=== PATIENT | female | born 1935 | race Caucasian/White ===

== ENCOUNTER 2018-10-20 07:30 | Inpatient (IN) ==
[2018-11-10] MEDS ORDERED: Sodium Chlor 0.9% Inj 500 ML IV.CONT ONE (06:00)
[2018-11-10] MEDS ORDERED: Metoprolol Tartrate 25 MG Tablet PO ONE (06:00)
[2018-11-10] MEDS ORDERED: Chlorhexidine Gluconate 2% 1 Pack (2 Cloths) TOPICAL ONE (06:00)
[2018-11-10] MEDS ORDERED: fentaNYL Citrate Inj 250 MCG/5 ML Ampul ONE (07:06)
[2018-11-10] MEDS ORDERED: ceFAZolin 1 GM Premix Inj 2 GM/100 ML PIGGYBACK IV.SIG ONE (07:17)
[2018-11-10] MEDS ORDERED: Heparin - SQ 10,000 UNITS/ML Vial ONE (07:17)
[2018-11-10] MEDS ORDERED: SODIUM CHLOR P-ARTICULR ONE ×4 (08:00)
[2018-11-10] MEDS ORDERED: [UNRECOGNIZED DRUG - OTHER] P-ARTICULR ONE ×4 (08:00)
[2018-11-10] MEDS ORDERED: BUPIVACAINE LIPOSO P-ARTICULR ONE ×4 (08:00)
[2018-11-10] MEDS ORDERED: Bisacodyl 10 MG Supp RECTAL PRN (11:56)
[2018-11-10] MEDS ORDERED: Acetaminophen 325 MG Tablet PO PRN (11:56)
[2018-11-10] MEDS ORDERED: Post-op Orders (for Pharmacy) OTHER STA (11:56)
[2018-11-10] MEDS ORDERED: Ketorolac Inj 30 MG/ML (IVP) Vial IV.PUSH SCH (12:00)
--- NOTE | 2018-11-10 12:05 | P.OP ---
Date of procedure: 11/10/18 Anesthesia: GETA Surgeon: Bettina Coronel MD Operation and Findings: PREOPERATIVE DIAGNOSIS 1. Left upper lobe Lung Cancer 2. COPD POSTOPERATIVE DIAGNOSIS same PROCEDURES 1. Left posterolateral Muscle Sparing Thoracotomy 2. Left upper lobectomy 3. Mediastinal Lymph Node Dissection 4. Cryo nerve block 5. Pharmacologic Intercostal Nerve Block SURGEON Bettina Coronel MD SENIOR NETWORK ENGINEER JOSE Lott ANESTHESIA General double-lumen endotracheal. INDIRECT FIRE INFANTRYMAN ILIA Dave MD DRAINS [address] COUNTS Needle, sponge, and instrument counts were correct. COMPLICATIONS None. INDICATION FOR PROCEDURE The patient is a 83yo lady with left lung mass presenting for surgical resection of above pathology. DESCRIPTION OF PROCEDURE The patient was brought to the operating suite and placed in supine position. Following satisfactory induction of general double-lumen endotracheal anesthesia , the patient was placed in the right lateral decubitus position. The left chest and surrounding area was then prepped and draped in the usual sterile fashion. A standard muscle-sparing posterolateral thoracotomy was performed and the serratus anterior muscle spared. The pleural space was entered. Exploration of the chest revealed a large mass in the left upper lobe close to the fissure but not crossing the fissure. The inferior pulmonary ligament was divided. The pulmonary arterial supply to the upper lobe was identified, dissected free and divided as was the pulmonary venous supply. The bronchus was then dissected free , clamped and the remaining lung was insufflated without any difficulty. Lymph node dissections of level 5,6, 7, 10 and 11 were performed along with the course of this removal. Some of these were retained with the specimen. Specimen was removed from the chest. The remaining lung was submerged under sterile water and inflated. No air leaks were identified. At this point the closure was undertaken. A 28-Y[place]ut chest tube was placed. Cryo nerve block was performed using the AtriCure Cryo-probe at the level of the incision as well as two intercostal spaces above and below. Tissell was sprayed along the staple line and no air-leaks were identified. Pharmacologic intercostal nerve block was performed at the level of the incision and 3 rib spaces above and below using Exparel with Decadron solution. The pericostal space was approximated with interrupted #1 Vicryl sutures in a pericostal fashion. The serratus fascia and Latissimus dorsi were closed with running 0-Vicryl and the remaining wounds closed with 3-0, and 4-0 Monocryl. The patient tolerated the procedure well and postoperatively went to the PACU in stable condition.
[2018-11-10] MEDS ORDERED: *morphine SULFATE 4 MG/ML PERIprocedure ONLY ONE ×2 (12:30→12:59)
--- NOTE | 2018-11-10 12:49 | XR ---
EXAM DATE: 11/10/2018 12:35 PM EST AGE/SEX: 83 years / Female INDICATIONS: Post op, thoracotomy. CLINICAL DATA: This is the patient's initial encounter. Patient reports that signs and symptoms have been present for 1 day and indicates a pain score of Nonresponsive. MEDICAL/SURGICAL HISTORY: Chronic obstructive pulmonary disease. None. COMPARISON: [facility] [place] 2V PA&LAT, 10/17/2018. . FINDINGS: A left chest tube is noted status post thoracotomy. Tiny left basilar pneumothorax is noted. Minimal subcutaneous emphysema is noted within the left chest wall. The right lung is clear. The previously n oted left lung mass has been resected. The heart is stable. CONCLUSION: Tiny left basilar pneumothorax and minimal subcutaneous emphysema within the left chest wall. Electronically signed by: Leonardo Jeff MD Board Certified Radiologist 11/10/2018 12:48 PM EST
[2018-11-10] MEDS ORDERED: Ketorolac Inj 30 MG/ML (IVP) Vial ONE (12:54)
--- NOTE | 2018-11-10 14:50 | P.PNCV ---
- Note Subjective/Hospital Course: 83 female , initially seen in office by Dr Coronel on 10/16/19, presented with new findings of a large left upper lobe mass, underwent workup including PET CT demonstrating 5.8 cm spiculated mass in the left upper lobe abutting the fissure. PMH: COPD, arthritis , glaucoma , tobacco abuse electively admitted for surgery Date of procedure: 11/10/18 Anesthesia: GETA Surgeon: Bettina Coronel MD Operation and Findings: PREOPERATIVE DIAGNOSIS 1. Left upper lobe Lung Cancer 2. COPD POSTOPERATIVE DIAGNOSIS same PROCEDURES 1. Left posterolateral Muscle Sparing Thoracotomy 2. Left upper lobectomy 3. Mediastinal Lymph Node Dissection 4. Cryo nerve block 5. Pharmacologic Intercostal Nerve Block Objective: Vital Signs - 24 hr 11/10/18 06:19 11/10/18 12:10 11/10/18 12:15 Temperature 97.7 F 96.9 F L Pulse Rate 70 73 75 Respiratory Rate 18 15 20 Blood Pressure 157/87 H 121/62 122/60 Pulse Oximetry 95 98 97 11/10/18 12:30 11/10/18 12:45 11/10/18 13:00 Temperature Pulse Rate 66 68 65 Respiratory Rate 22 22 20 Blood Pressure 123/60 143/65 H 141/68 H Pulse Oximetry 97 96 96 11/10/18 13:15 11/10/18 13:30 Temperature 97.5 F L Pulse Rate 60 62 Respiratory Rate 18 20 Blood Pressure 141/67 H 140/64 Pulse Oximetry 96 96 Labs: Laboratory Results - last 12 hr 11/10/18 11/10/18 11/10/18 06:10 06:10 07:58 Blood Type O Negative Blood Type Recheck Required Antibody Screen Positive H Antibody Identification Anti-D MTS Gel Crossmatch See Detail
--- NOTE | 2018-11-10 14:53 | P.DCO ---
- Diagnosis (1) S/P thoracotomy Status: Acute (2) Lung cancer Status: Chronic (3) COPD (chronic obstructive pulmonary disease) Status: Chronic (4) Tobacco abuse Status: Acute - Home Health Nursing Order: Medical education, Signs/symptoms of disease process, Wound care and dressing changes, Nursing assessment with vital signs Instructions: Incentive spirometry Q1 hr x 10, while awake, also use acapella device hourly whole Chest wall precautions: NO pushing or pulling, ( pt must use chest pillow support chest with all activities and with coughing Daily incision care: ok to shower ( 48hrs after chest tube removed) and then daily, no tub bath. Wash all incisions with liquid dial soap, clean wash cloth to each site, rinse and pat dry. Observe for any signs of infection, such as drainage which is dark yellow, beltran, green or foul smelling. Immediately report to the surgeon any drainage from the chest incision, or legs, and for any abnormal drainage from the chest tube sites. Notify surgeon if any temp > 101.5 degrees F. When specialty dressing removed/ or if you do not have one, continue to shower daily as above, then rinse and pat incision dry and paint with betadine daily x 5 days. Allow steri strips to fall off if you have any. Avoid lotions, creams, salves, oils, etc. for the first month For Dr. Guaman patients , please obtain PA & Lat CXR in 2 weeks, results to Dr. Guaman ( prescription will be given) ( ) (Tele: ) , F/U appointment: as per MO instructions: PCP in 2 weeks, CV surgeon 2 weeks, Enrober Tender 3-4 weeks For any questions regarding incisions/ dressing / meds / post op care or above Symptoms, Tuesday 8am-5pm Heart & Vascular Surgery Office ( Dr. Coronel & Dr. Guaman), After Hours / Nights (5pm -8am) Weekends and Holidays Please call [facility] ([facility]) Charge Nurse Thoracic Surgery patients Mandatory frequency Assess and evaluation, 2-3 x a week for one week Initial visit 1. Review post chest surgery instructions chest precautions, Activity, Elastic hose, Incision care, Driving, Incentive spirometry, Smoking, [place] , Work and other) 2. Need Betadine to paint incision 3. Medication reconciliation 4. Importance of follow up care/ check on appointments 5. Make calendar record temperature daily 6. When to call Home nurse, review instructions, phone list 7. Incentive Spirometry, demonstration Visit 1- Begin discharge instruction for patient family and/ or caregiver using teach back method- 1. Signs and symptoms of infection 2. Disease characteristics 3. Medicines and side effects 4. Foods and nutrition/ appetite 5. Infection control/ hand washing/ hygiene Visit 2- Continue teaching 1. Discharge instructions- include additional information on smoking cessation , Visit 3- Continue teaching- 1. Cough and deep breathing, incision monitoring. For any questions please call : / [facility] Cardiothoracic Surgery [phone] - Case Management Consult Case Management Consult-Home Health: Yes - Certification I have seen patient Sho Kuhn on 11/10/18. My clinical findings support the need for the requested home health care services because: Deconditioned with increased weakness I certify that my clinical findings support that this patient is homebound because: Post-op weakness
[2018-11-10] MEDS: Ketorolac Inj 30 MG/ML (IVP) Vial IV.PUSH SCH (18:44)
[2018-11-10] MEDS: ceFAZolin Inj 1 GM in Sodium Chlor 0.9% Inj 100 ML IV.SIG SCH (19:01)
[2018-11-10] MEDS: Latanoprost 0.005% Opth Drops 2.5 ML Bottle EACH EYE SCH (19:02)
[2018-11-10] MEDS: Senna/Docusate Sodium 8.6/50 MG Tablet PO SCH (20:51)
[2018-11-10] MEDS: Vitamins A,C,E/Lutein/Minerals Tablet PO SCH (22:04)
[2018-11-10] MEDS: Timolol 0.5% Drops 5 ML Bottle EACH EYE SCH (22:04)
[2018-11-10] MEDS: Atenolol 25 MG Tablet PO SCH (22:04)
[2018-11-11] MEDS: ceFAZolin Inj 1 GM in Sodium Chlor 0.9% Inj 100 ML IV.SIG SCH ×2 (01:09→09:32)
[2018-11-11] MEDS: Ketorolac Inj 30 MG/ML (IVP) Vial IV.PUSH SCH ×2 (01:31→06:20)
--- NOTE | 2018-11-11 04:13 | XR ---
EXAM DATE: 11/11/2018 4:00 AM EST AGE/SEX: 83 years / Female INDICATIONS: shortness of breath, possible pneumothorax. CLINICAL DATA: This is the patient's subsequent encounter. Patient reports that signs and symptoms h ave been present for 2 days and indicates a pain score of 5/10. MEDICAL/SURGICAL HISTORY: Chronic obstructive pulmonary disease. Chest tube, left. Thoracotomy. COMPARISON: No prior exams available for comparison. FINDINGS: Portable AP view of the chest demonstrates a normal-sized cardiac silhouette. There is elevation of t he left hemidiaphragm. Left chest tube is in place and no pneumothorax is visualized. There is mild a telectasis at the lung bases. Mild left chest wall and supraclavicular region subcutaneous emphysema is present. CONCLUSION: Left chest tube is in place and no pneumothorax is visualized. There is elevation of the left hemidia phragm. Electronically signed by: Fer Cavazos MD Board Certified Radiologist 11/11/2018 4:12 AM EST
[2018-11-11 05:06] LABS: Baso % (Auto) 0.4 % (0.0-2.0); Eos % (Auto) 0.4 % (0.0-4.0); Hematocrit 32.8 % (35.0-46.0); Hemoglobin 11.1 gm/dL (11.6-15.3); Lymph # (Auto) 1.6 th/mm3 (1.0-4.8); Lymph % (Auto) 13.9 % (9.0-44.0); Mean Corpuscular HGB Conc 33.9 % (32.0-36.0); Mean Corpuscular Hemoglobin 28.5 pg (27.0-34.0); Mean Corpuscular Volume 84.3 fL (80.0-100.0); Mean Platelet Volume 7.9 fL (7.0-11.0); Mono # (Auto) 1.1 th/mm3 (0.0-0.9); Mono % (Auto) 9.7 % (0.0-8.0); Neut # (Auto) 8.6 th/mm3 (1.8-7.7); Neut % (Auto) 75.6 % (16.0-70.0); Platelet Count 232 th/mm3 (150-450); Red Blood Count 3.89 mil/mm3 (4.00-5.30); Red Cell Distribution Width 14.1 % (11.6-17.2); White Blood Count 11.4 th/mm3 (4.0-11.0)
[2018-11-11 05:09] LABS: Calcium 8.1 mg/dL (8.5-10.1); Carbon Dioxide 29.8 meq/L (21.0-32.0); Potassium 4.4 meq/L (3.5-5.1)
[2018-11-11] MEDS: Lactobacillus Acidophilus/L. Spores Tablet PO SCH (08:57)
[2018-11-11] MEDS: Timolol 0.5% Drops 5 ML Bottle EACH EYE SCH ×2 (08:57→21:48)
[2018-11-11] MEDS: Senna/Docusate Sodium 8.6/50 MG Tablet PO SCH ×2 (08:58→21:47)
[2018-11-11] MEDS: Vitamins A,C,E/Lutein/Minerals Tablet PO SCH ×2 (08:58→21:46)
[2018-11-11] MEDS: Atenolol 25 MG Tablet PO SCH ×2 (08:59→21:46)
--- NOTE | 2018-11-11 11:49 | P.PNCV ---
- Note CVT: Post Op Day #: 1 Subjective/Hospital Course: 83 female , initially seen in [facility] by Dr Coronel on 10/16/19, presented with new findings of a large left upper lobe mass, underwent workup including PET CT demonstrating 5.8 cm spiculated mass in the left upper lobe abutting the fissure. PMH: COPD, arthritis , glaucoma , tobacco abuse electively admitted for surgery Date of procedure: 11/10/18 Anesthesia: GETA Surgeon: Bettina Coronel MD Operation and Findings: PREOPERATIVE DIAGNOSIS 1. Left upper lobe Lung Cancer 2. COPD POSTOPERATIVE DIAGNOSIS same PROCEDURES 1. Left posterolateral Muscle Sparing Thoracotomy 2. Left upper lobectomy 3. Mediastinal Lymph Node Dissection 4. Cryo nerve block 5. Pharmacologic Intercostal Nerve Block 11/11/18 doing well, no complaints ~170ml from chest tube, no air leak Objective: Vital Signs - 24 hr 11/10/18 12:10 11/10/18 12:15 11/10/18 12:30 Temperature 96.9 F L Pulse Rate 73 75 66 Respiratory Rate 15 20 22 Blood Pressure 121/62 122/60 123/60 Pulse Oximetry 98 97 97 11/10/18 12:45 11/10/18 13:00 11/10/18 13:15 Temperature Pulse Rate 68 65 60 Respiratory Rate 22 20 18 Blood Pressure 143/65 H 141/68 H 141/67 H Pulse Oximetry 96 96 96 11/10/18 13:30 11/10/18 15:00 11/10/18 15:28 Temperature 97.5 F L 97.9 F Pulse Rate 62 70 64 Respiratory Rate 20 22 18 Blood Pressure 140/64 145/66 H 133/92 H Pulse Oximetry 96 97 99 11/10/18 16:38 11/10/18 19:00 11/10/18 19:35 Temperature 97.8 F Pulse Rate 87 67 74 Respiratory Rate 18 22 22 Blood Pressure 138/63 Pulse Oximetry 99 94 L 11/10/18 20:00 11/10/18 22:00 11/10/18 22:21 Temperature Pulse Rate 90 88 Respiratory Rate 4 L Blood Pressure Pulse Oximetry 11/10/18 22:55 11/11/18 00:00 11/11/18 01:00 Temperature 98 F Pulse Rate 73 88 64 Respiratory Rate 18 Blood Pressure 123/62 Pulse Oximetry 94 L 11/11/18 02:02 11/11/18 03:00 11/11/18 03:46 Temperature 97.8 F Pulse Rate 67 65 65 Respiratory Rate 18 16 Blood Pressure 122/58 L Pulse Oximetry 94 L 11/11/18 04:00 11/11/18 05:00 11/11/18 06:00 Temperature Pulse Rate 80 65 80 Respiratory Rate Blood Pressure Pulse Oximetry 11/11/18 07:00 11/11/18 08:00 11/11/18 09:00 Temperature 97.8 F Pulse Rate 72 86 86 Respiratory Rate 20 Blood Pressure 145/67 H Pulse Oximetry 93 L 11/11/18 10:00 11/11/18 11:25 11/11/18 11:30 Temperature Pulse Rate 91 H 73 Respiratory Rate 20 Blood Pressure Pulse Oximetry 93 L Labs: Laboratory Results - last 12 hr 11/10/18 11/11/18 11/11/18 07:58 04:06 04:06 WBC 11.4 H RBC 3.89 L Hgb 11.1 L Hct 32.8 L MCV 84.3 MCH 28.5 MCHC 33.9 RDW 14.1 Plt Count 232 MPV 7.9 Neut % (Auto) 75.6 H Lymph % (Auto) 13.9 [place] % (Auto) 9.7 H Eos % (Auto) 0.4 Baso % (Auto) 0.4 Neut # (Auto) 8.6 H Lymph # (Auto) 1.6 [place] # (Auto) 1.1 H Eos # (Auto) 0.0 Baso # (Auto) 0.0 WBC Differential . Differential Comment Auto diff final Sodium 132 L Potassium 4.4 Chloride 96 L Carbon Dioxide 29.8 Anion Gap 6 BUN 20 H Creatinine 0.92 Estimated GFR 58 L Random Glucose 85 Calcium 8.1 L MTS Gel Crossmatch See Detail Result Diagrams: 11/11/18 04:06 11/11/18 04:06 Imaging: Chest X-Ray 11/11/18 11:56 CONCLUSION: Left chest tube is in place and no pneumothorax is visualized. There is elevation of the left hemidiaphragm. Cardiovascular: RRR Pulmonary: CTA GI/: NABS Incision: dry and intact CT: as above Chest tube to water seal Encourage ambulation CXR in AM
[2018-11-11] MEDS: Latanoprost 0.005% Opth Drops 2.5 ML Bottle EACH EYE SCH (17:35)
--- NOTE | 2018-11-12 03:54 | XR ---
EXAM DATE: 11/12/2018 3:43 AM EST AGE/SEX: 83 years / Female INDICATIONS: Shortness of breath, possible pneumothorax. CLINICAL DATA: This is the patient's subsequent encounter. Patient reports that signs and symptoms h ave been present for 3 days and indicates a pain score of 3/10. MEDICAL/SURGICAL HISTORY: Chronic obstructive pulmonary disease. Lobectomy. Chest tube, left. COMPARISON: [facility] – [place] 1V SINGLE AP, 11/11/2018. . FINDINGS: Portable AP view of the chest demonstrates a normal-sized cardiac silhouette. Left hemidiaphragm kavya ins elevated with left chest tube in place. No pneumothorax is visualized. There is mild bibasilar op acity with an appearance favoring atelectasis. No pleural effusion is seen. Examination quality is mi ldly degraded by motion artifact. CONCLUSION: Stable chest x-ray with left chest tube in place and no pneumothorax visualized. There is mild atelec tasis at the lung bases. Electronically signed by: Fer Cavazos MD Board Certified Radiologist 11/12/2018 3:52 AM EST
[2018-11-12] MEDS: Timolol 0.5% Drops 5 ML Bottle EACH EYE SCH ×2 (09:50→21:30)
[2018-11-12] MEDS: Vitamins A,C,E/Lutein/Minerals Tablet PO SCH ×2 (09:51→21:29)
[2018-11-12] MEDS: Lactobacillus Acidophilus/L. Spores Tablet PO SCH (09:51)
[2018-11-12] MEDS: Senna/Docusate Sodium 8.6/50 MG Tablet PO SCH ×2 (09:51→21:29)
[2018-11-12] MEDS: Atenolol 25 MG Tablet PO SCH ×2 (09:52→21:29)
--- NOTE | 2018-11-12 12:32 | P.PNCV ---
- Note CVT: Post Op Day #: 2 Subjective/Hospital Course: 83 female , initially seen in [facility] by Dr Coronel on 10/16/19, presented with new findings of a large left upper lobe mass, underwent workup including PET CT demonstrating 5.8 cm spiculated mass in the left upper lobe abutting the fissure. PMH: COPD, arthritis , glaucoma , tobacco abuse electively admitted for surgery Date of procedure: 11/10/18 Anesthesia: GETA Surgeon: Bettina Coronel MD Operation and Findings: PREOPERATIVE DIAGNOSIS 1. Left upper lobe Lung Cancer 2. COPD POSTOPERATIVE DIAGNOSIS same PROCEDURES 1. Left posterolateral Muscle Sparing Thoracotomy 2. Left upper lobectomy 3. Mediastinal Lymph Node Dissection 4. Cryo nerve block 5. Pharmacologic Intercostal Nerve Block 11/11/18 doing well, no complaints ~170ml from chest tube, no air leak 11/12/18 ~170ml/12hrs, no air leak No complaints Objective: Vital Signs - 24 hr 11/11/18 13:00 11/11/18 14:00 11/11/18 14:51 Temperature Pulse Rate 80 66 Respiratory Rate 20 Blood Pressure Pulse Oximetry 11/11/18 15:00 11/11/18 16:00 11/11/18 16:28 Temperature 98.1 F Pulse Rate 72 67 70 Respiratory Rate 20 18 Blood Pressure 165/77 H Pulse Oximetry 94 L 11/11/18 17:00 11/11/18 18:00 11/11/18 19:00 Temperature 97.9 F Pulse Rate 72 90 74 Respiratory Rate 20 Blood Pressure 142/72 H Pulse Oximetry 96 11/11/18 20:00 11/11/18 20:55 11/11/18 21:00 Temperature Pulse Rate 64 72 72 Respiratory Rate 18 Blood Pressure Pulse Oximetry 94 L 11/11/18 22:00 11/11/18 22:31 11/11/18 23:00 Temperature 98.2 F Pulse Rate 92 H 76 62 Respiratory Rate 18 Blood Pressure 157/72 H Pulse Oximetry 98 11/12/18 00:00 11/12/18 01:00 11/12/18 02:00 Temperature Pulse Rate 62 66 63 Respiratory Rate Blood Pressure Pulse Oximetry 11/12/18 03:00 11/12/18 04:00 11/12/18 04:30 Temperature 97.9 F Pulse Rate 64 94 H 90 Respiratory Rate 16 18 Blood Pressure 156/62 H Pulse Oximetry 96 11/12/18 05:00 11/12/18 06:00 11/12/18 07:00 Temperature 98.6 F Pulse Rate 88 65 65 Respiratory Rate 20 Blood Pressure 170/78 H Pulse Oximetry 96 11/12/18 08:00 Temperature Pulse Rate 88 Respiratory Rate Blood Pressure Pulse Oximetry Result Diagrams: 11/11/18 04:06 11/11/18 04:06 Imaging: Chest X-Ray 11/12/18 06:00 CONCLUSION: Stable chest x-ray with left chest tube in place and no pneumothorax visualized. There is mild atelectasis at the lung bases. Cardiovascular: RRR Pulmonary: CTA GI/: NABS Incision: dry and intact Continue chest tube to water seal Encourage ambulation D/C planing CXR in AM
[2018-11-12] MEDS: Latanoprost 0.005% Opth Drops 2.5 ML Bottle EACH EYE SCH (17:10)
--- NOTE | 2018-11-13 08:38 | XR ---
EXAM DATE: 11/13/2018 8:28 AM EST AGE/SEX: 83 years / Female INDICATIONS: . Chest tube placement. CLINICAL DATA: This is the patient's subsequent encounter. Patient reports that signs and symptoms h ave been present for 4 - 6 days and indicates a pain score of 0/10. MEDICAL/SURGICAL HISTORY: . Chronic obstructive pulmonary disease. . Lobectomy. Chest tub e, left COMPARISON: [facility] – [place], CHEST EXPIRATION ONLY, 11/12/2018. . FINDINGS: Frontal and lateral views of the chest demonstrate a normal-sized cardiac silhouette. Left hemidiaphr agm remains elevated and mediastinum is mildly deviated to the left. Left chest tube is present and n o pneumothorax is identified. There is a small meniscus on the left as well as on the lateral project ion. No airspace consolidation is present. Bones demonstrate no acute abnormality. CONCLUSION: 1. Left chest tube remains present and no pneumothorax is visualized. 2. Very small left pleural effusion Electronically signed by: Fer Cavazos MD Board Certified Radiologist 11/13/2018 8:37 AM EST
[2018-11-13] MEDS: Senna/Docusate Sodium 8.6/50 MG Tablet PO SCH ×2 (09:01→20:22)
[2018-11-13] MEDS: Lactobacillus Acidophilus/L. Spores Tablet PO SCH (09:01)
[2018-11-13] MEDS: Atenolol 25 MG Tablet PO SCH ×2 (09:01→20:22)
[2018-11-13] MEDS: Vitamins A,C,E/Lutein/Minerals Tablet PO SCH ×2 (09:01→20:22)
[2018-11-13] MEDS: Timolol 0.5% Drops 5 ML Bottle EACH EYE SCH ×2 (09:02→20:22)
--- NOTE | 2018-11-13 14:44 | P.PNCV ---
- Note Subjective/Hospital Course: 83 female , initially seen in [facility] by Dr Coronel on 10/16/19, presented with new findings of a large left upper lobe mass, underwent workup including PET CT demonstrating 5.8 cm spiculated mass in the left upper lobe abutting the fissure. PMH: COPD, arthritis , glaucoma , tobacco abuse electively admitted for surgery Date of procedure: 11/10/18 Anesthesia: GETA Surgeon: Bettina Coronel MD Operation and Findings: PREOPERATIVE DIAGNOSIS 1. Left upper lobe Lung Cancer 2. COPD POSTOPERATIVE DIAGNOSIS same PROCEDURES 1. Left posterolateral Muscle Sparing Thoracotomy 2. Left upper lobectomy 3. Mediastinal Lymph Node Dissection 4. Cryo nerve block 5. Pharmacologic Intercostal Nerve Block 11/11/18 doing well, no complaints ~170ml from chest tube, no air leak 11/12/18 ~170ml/12hrs, no air leak No complaints 11/13 chest tube dc without difficulty f/u CXR in am then eval for dc in am Objective: Vital Signs - 24 hr 11/12/18 15:00 11/12/18 16:00 11/12/18 16:03 Temperature 97.7 F Pulse Rate 72 73 67 Respiratory Rate 20 18 Blood Pressure 152/69 H Pulse Oximetry 95 11/12/18 17:00 11/12/18 18:00 11/12/18 19:00 Temperature 97.6 F Pulse Rate 73 72 73 Respiratory Rate 16 Blood Pressure 147/67 H Pulse Oximetry 94 L 11/12/18 19:56 11/12/18 20:00 11/12/18 21:00 Temperature Pulse Rate 70 68 78 Respiratory Rate 16 Blood Pressure Pulse Oximetry 11/12/18 22:00 11/12/18 23:00 11/13/18 00:00 Temperature 98.4 F Pulse Rate 68 68 66 Respiratory Rate 18 Blood Pressure 158/81 H Pulse Oximetry 96 11/13/18 01:00 11/13/18 02:00 11/13/18 03:00 Temperature 98.6 F Pulse Rate 63 60 64 Respiratory Rate 18 Blood Pressure 166/74 H Pulse Oximetry 96 11/13/18 04:00 11/13/18 05:00 11/13/18 05:48 Temperature Pulse Rate 58 L 89 60 Respiratory Rate Blood Pressure Pulse Oximetry 11/13/18 07:00 11/13/18 08:00 11/13/18 09:00 Temperature 97.8 F Pulse Rate 69 65 68 Respiratory Rate 18 14 Blood Pressure 166/79 H Pulse Oximetry 94 L 11/13/18 09:58 11/13/18 10:00 11/13/18 11:00 Temperature 98.0 F Pulse Rate 64 78 Respiratory Rate 18 Blood Pressure 156/78 H Pulse Oximetry 94 L 96 11/13/18 12:00 Temperature Pulse Rate 64 Respiratory Rate Blood Pressure Pulse Oximetry GENERAL: A&O x 3 SKIN: Warm and dry. incision intact to left posterior lateral chest HEAD: Normocephalic. EYES: No scleral icterus. No injection or drainage. NECK: Supple, trachea midline. No JVD or lymphadenopathy. CARDIOVASCULAR: Regular rate and rhythm without murmurs, gallops, or rubs. RESPIRATORY: Breath sounds equal bilaterally. No accessory muscle use. slightly diminished in bases GASTROINTESTINAL: Abdomen soft, non-tender, nondistended. MUSCULOSKELETAL: No cyanosis, or edema. BACK: Nontender without obvious deformity. No CVA tenderness. Labs: Laboratory Results - last 12 hr 11/10/18 07:58 MTS Gel Crossmatch See Detail Result Diagrams: 11/11/18 04:06 11/11/18 04:06 Telemetry: NSR - Plan (1) S/P thoracotomy Plan: pulm toileting nebs ezpap await path OOB ambulate on room air (4) Tobacco abuse Plan: smoking cessation
--- NOTE | 2018-11-13 14:59 | P.DS ---
Date of admission: 11/10/18 05:19 Primary care physician: Ramy Oconnell MD Attending physician on discharge: Bettina Coronel Anticipated date of discharge: 11/14/18 Brief History from admission: 83 female , initially seen in [facility] office by Dr Coronel on 10/16/19, presented with new findings of a large left upper lobe mass, underwent workup including PET CT demonstrating 5.8 cm spiculated mass in the left upper lobe abutting the fissure. PMH: COPD, arthritis , glaucoma , tobacco abuse electively admitted for surgery Date of procedure: 11/10/18 Anesthesia: OGA Surgeon: Bettina Coronel MD Operation and Findings: PREOPERATIVE DIAGNOSIS 1. Left upper lobe Lung Cancer 2. COPD POSTOPERATIVE DIAGNOSIS same PROCEDURES 1. Left posterolateral Muscle Sparing Thoracotomy 2. Left upper lobectomy 3. Mediastinal Lymph Node Dissection 4. Cryo nerve block 5. Pharmacologic Intercostal Nerve Block 11/11/18 doing well, no complaints ~170ml from chest tube, no air leak 11/12/18 ~170ml/12hrs, no air leak No complaints 11/13 chest tube dc without difficulty on room air, pain controlled DS: Diagnosis - Discharge Diagnosis (1) S/P thoracotomy Status: Acute (2) Lung cancer Status: Chronic (3) COPD (chronic obstructive pulmonary disease) Status: Chronic (4) Tobacco abuse Status: Chronic DS: Medications - Discharge Medications Prescriptions: hydrocodone-acetaminophen 1 tab PO Q6H PRN #30 tab PRN Reason: Pain Scale 3 To 5 DS: Summary Hospital Course: Date of procedure: 11/10/18 Anesthesia: GETA Surgeon: Bettina Coronel MD Operation and Findings: PREOPERATIVE DIAGNOSIS 1. Left upper lobe Lung Cancer 2. COPD POSTOPERATIVE DIAGNOSIS same PROCEDURES 1. Left posterolateral Muscle Sparing Thoracotomy 2. Left upper lobectomy 3. Mediastinal Lymph Node Dissection 4. Cryo nerve block 5. Pharmacologic Intercostal Nerve Block 11/11/18 doing well, no complaints ~170ml from chest tube, no air leak 11/12/18 ~170ml/12hrs, no air leak No complaints - Time Spent with Patient Total time spent providing and/or coordinating discharge services: Less than 30 minutes - Quality: VTE Deep Vein Thrombosis/Pulmonary Embolism Present on Admission: No Exam Vital signs: Vital Signs 11/12/18 15:00 11/12/18 16:00 11/12/18 16:03 Temperature 97.7 F Pulse Rate 72 73 67 Respiratory Rate 20 18 Blood Pressure 152/69 H Pulse Oximetry 95 11/12/18 17:00 11/12/18 18:00 11/12/18 19:00 Temperature 97.6 F Pulse Rate 73 72 73 Respiratory Rate 16 Blood Pressure 147/67 H Pulse Oximetry 94 L 11/12/18 19:56 11/12/18 20:00 11/12/18 21:00 Temperature Pulse Rate 70 68 78 Respiratory Rate 16 Blood Pressure Pulse Oximetry 11/12/18 22:00 11/12/18 23:00 11/13/18 00:00 Temperature 98.4 F Pulse Rate 68 68 66 Respiratory Rate 18 Blood Pressure 158/81 H Pulse Oximetry 96 11/13/18 01:00 11/13/18 02:00 11/13/18 03:00 Temperature 98.6 F Pulse Rate 63 60 64 Respiratory Rate 18 Blood Pressure 166/74 H Pulse Oximetry 96 11/13/18 04:00 11/13/18 05:00 11/13/18 05:48 Temperature Pulse Rate 58 L 89 60 Respiratory Rate Blood Pressure Pulse Oximetry 11/13/18 07:00 11/13/18 08:00 11/13/18 09:00 Temperature 97.8 F Pulse Rate 69 65 68 Respiratory Rate 18 14 Blood Pressure 166/79 H Pulse Oximetry 94 L 11/13/18 09:58 11/13/18 10:00 11/13/18 11:00 Temperature 98.0 F Pulse Rate 64 78 Respiratory Rate 18 Blood Pressure 156/78 H Pulse Oximetry 94 L 96 11/13/18 12:00 Temperature Pulse Rate 64 Respiratory Rate Blood Pressure Pulse Oximetry Intake & Output 11/12/18 11/13/18 11/13/18 18:59 06:59 18:59 Intake Total 840 / 840 480 / 480 Output Total 490 / 490 50 / 50 Balance 350 / 350 430 / 430 Weight 68 kg Intake: Oral 840 / 840 480 / 480 Output: Urine 400 / 400 Chest Tube Drainage 90 / 90 50 / 50 Left Pleural 90 / 90 50 / 50 Other: # Voids 5 4 Date of Last Bowel Movement 11/10/18 11/10/18 # Bowel Movements 0 - Constitutional no acute distress - Routine HEENT Exam Head: Present: normocephalic - Routine Neck Exam Present: supple, full ROM - Routine Chest/Breast/Axilla Exam Chest wall: Present: tenderness Breast: Present: scars - Routine Respiratory Exam Present: decreased breath sounds, CTA bilaterally - Routine Cardiovascular Exam Present: RRR, S1, S2 - Routine Abdominal Exam Present: soft, normoactive bowel sounds - Routine Extremities Exam Present: full ROM, pulses intact, normal capillary refill - Routine Skin Exam Present: wounds Comments: left posterior chest incision intact and well approximated chest tube dc - Routine Neurological Exam Present: alert, oriented X3 Results Procedures completed during hospitalization: Date of procedure: 11/10/18 Anesthesia: GETA Surgeon: Bettina Coronel MD Operation and Findings: PREOPERATIVE DIAGNOSIS 1. Left upper lobe Lung Cancer 2. COPD POSTOPERATIVE DIAGNOSIS same PROCEDURES 1. Left posterolateral Muscle Sparing Thoracotomy 2. Left upper lobectomy 3. Mediastinal Lymph Node Dissection 4. Cryo nerve block 5. Pharmacologic Intercostal Nerve Block Labs on day of discharge: Labs from last 24 hours 11/10/18 07:58 MTS Gel Crossmatch See Detail - Impressions ITS Impressions Chest X-Ray 11/13/18 06:00 CONCLUSION: 1. Left chest tube remains present and no pneumothorax is visualized. 2. Very small left pleural effusion Discharge Plan - Discharge Disposition Patient Disposition: /Home Health Service - Discharge Condition Condition: Good - Discharge Order Discharge Orders: Discharge Order (Routine); Ordered 11/14/18 Ordered By: Lona Cao - Physicians Team Primary Care Provider: Ramy Oconnell Attending Provider: Bettina Coronel - Rxs /Orders / Referrals /Forms Prescriptions: New docusate sodium [Colace] 100 mg Capsule 100 mg PO BID Qty: 30 RF: 0 hydrocodone-acetaminophen 5-325 mg Tablet 1 tab PO Q6H PRN (Reason: Pain Scale 3 To 5) Qty: 30 RF: 0 Continue atenolol 25 mg Tablet 25 mg PO BID L.acid-B.animalis,bifi,inf,guicho [5X Probiotic] 3 billion cell Capsule 1 cap PO DAILY latanoprost (PF) 0.005 % Drops 1 drp OPHTHALMIC (EYE) QPM losartan 25 mg Tablet 100 mg PO DAILY timolol 0.5 % Drops 1 drp OPHTHALMIC (EYE) BID vit C,E-Xk-djskm-lutein-zeaxan [PreserVision AREDS-2] [id number] mg-unit-mg -mg Capsule 1 tab PO BID Referrals: Ramy Oconnell MD [Primary Care Provider] - See Instructions ( Your appointment has been scheduled for [11/15/18] at [9:45 am] If you cannot make this appointment, please call the office to reschedule ) Lona Cao [ADVANCE RN PRACTITIONER] - See Instructions ( Your appointment has been scheduled for [12/05/18] at [10:45 am] If you cannot make this appointment, please call the office to reschedule ) Alex Epps MD [Physician] - See Instructions ( Your appointment has been scheduled for [12/13/18] at [2:45 pm] If you cannot make this appointment, please call the office to reschedule ) - Discharge Instructions Additional Instructions: Incentive spirometry Q1 hr x 10, while awake, also use acapella device hourly whole Chest wall precautions: NO pushing or pulling, ( pt must use chest pillow support chest with all activities and with coughing Daily incision care: ok to shower ( 48hrs after chest tube removed) and then daily, no tub bath. Wash all incisions with liquid dial soap, clean wash cloth to each site, rinse and pat dry. Observe for any signs of infection, such as drainage which is dark yellow, beltran, green or foul smelling. Immediately report to the surgeon any drainage from the chest incision, or legs, and for any abnormal drainage from the chest tube sites. Notify surgeon if any temp > 101.5 degrees F. When specialty dressing removed/ or if you do not have one, continue to shower daily as above, then rinse and pat incision dry and paint with betadine daily x 5 days. Allow steri strips to fall off if you have any. Avoid lotions, creams, salves, oils, etc. for the first month For Dr. Guaman patients , please obtain PA & Lat CXR in 2 weeks, results to Dr. Guaman ( prescription will be given) ( ) (Tele: [phone]) , F/U appointment: as per DC instructions: PCP in 2 weeks, CV surgeon 2 weeks, Clock Assembler 3-4 weeks For any questions regarding incisions/ dressing / meds / post op care or above Symptoms, Tuesday 8am-5pm Heart & Vascular Surgery Office ( Dr. Coronel & Dr. Guaman), After Hours / Nights (5pm -8am) Weekends and Holidays Please call [facility] ([facility]) Charge Nurse
[2018-11-13] MEDS: Latanoprost 0.005% Opth Drops 2.5 ML Bottle EACH EYE SCH (17:35)
--- NOTE | 2018-11-14 04:50 | XR ---
EXAM DATE: 11/14/2018 4:33 AM EST AGE/SEX: 83 years / Female INDICATIONS: Short of breath. CLINICAL DATA: This is the patient's subsequent encounter. Patient reports that signs and symptoms h ave been present for 4 - 6 days and indicates a pain score of 0/10. MEDICAL/SURGICAL HISTORY: Chronic obstructive pulmonary disease. Lobectomy. COMPARISON: [facility] – [place], CHEST 2V AP&LAT, 11/13/2018. . FINDINGS: Left apical chest tube has been removed. No significant pneumothorax. Persistent elevation of the lef t hemidiaphragm with progressive airspace consolidation in the left lower lung zone. Mild diffuse int erstitial prominence unchanged from prior exam. Cardiomediastinal contours are stable. Remainder of t he exam is unchanged. CONCLUSION: 1. No significant pneumothorax following removal of left apical chest tube. 2. Worsening left lower lobe airspace disease. Electronically signed by: Chucho Soliman MD Board Certified Radiologist 11/14/2018 4:49 AM EST
[2018-11-14] MEDS: Senna/Docusate Sodium 8.6/50 MG Tablet PO SCH (08:57)
[2018-11-14] MEDS: Lactobacillus Acidophilus/L. Spores Tablet PO SCH (08:57)
[2018-11-14] MEDS: Vitamins A,C,E/Lutein/Minerals Tablet PO SCH (08:57)
[2018-11-14] MEDS: Atenolol 25 MG Tablet PO SCH (08:57)
[2018-11-14] MEDS: Timolol 0.5% Drops 5 ML Bottle EACH EYE SCH (08:58)
--- NOTE | 2018-11-14 09:36 | P.PNCV ---
- Note Subjective/Hospital Course: 83 female , initially seen in [facility] by Dr Coronel on 10/16/19, presented with new findings of a large left upper lobe mass, underwent workup including PET CT demonstrating 5.8 cm spiculated mass in the left upper lobe abutting the fissure. PMH: COPD, arthritis , glaucoma , tobacco abuse electively admitted for surgery Date of procedure: 11/10/18 Anesthesia: GETA Surgeon: Bettina Coronel MD Operation and Findings: PREOPERATIVE DIAGNOSIS 1. Left upper lobe Lung Cancer 2. COPD POSTOPERATIVE DIAGNOSIS same PROCEDURES 1. Left posterolateral Muscle Sparing Thoracotomy 2. Left upper lobectomy 3. Mediastinal Lymph Node Dissection 4. Cryo nerve block 5. Pharmacologic Intercostal Nerve Block 11/11/18 doing well, no complaints ~170ml from chest tube, no air leak 11/12/18 ~170ml/12hrs, no air leak No complaints 11/13 chest tube dc without difficulty f/u CXR in am then eval for dc in am 11/14 pt on room air path report not completed pt will see Dr Coronel next week for results table for discharge home Objective: Vital Signs - 24 hr 11/13/18 09:58 11/13/18 10:00 11/13/18 11:00 Temperature 98.0 F Pulse Rate 64 78 Respiratory Rate 18 Blood Pressure 156/78 H Pulse Oximetry 94 L 96 11/13/18 12:00 11/13/18 13:00 11/13/18 14:00 Temperature Pulse Rate 64 68 62 Respiratory Rate Blood Pressure Pulse Oximetry 11/13/18 15:00 11/13/18 16:00 11/13/18 17:00 Temperature 98.2 F Pulse Rate 86 64 66 Respiratory Rate 18 Blood Pressure 160/78 H Pulse Oximetry 97 11/13/18 18:00 11/13/18 19:00 11/13/18 20:00 Temperature 97.6 F Pulse Rate 66 66 78 Respiratory Rate 18 Blood Pressure 177/79 H Pulse Oximetry 95 11/13/18 21:00 11/13/18 21:25 11/13/18 22:00 Temperature Pulse Rate 72 72 90 Respiratory Rate 18 Blood Pressure Pulse Oximetry 92 L 11/13/18 23:00 11/14/18 00:00 11/14/18 01:00 Temperature 98.5 F Pulse Rate 73 60 78 Respiratory Rate 16 Blood Pressure 165/73 H Pulse Oximetry 98 11/14/18 02:00 11/14/18 03:00 11/14/18 04:00 Temperature 98.1 F Pulse Rate 68 69 69 Respiratory Rate 16 Blood Pressure 173/82 H Pulse Oximetry 99 11/14/18 05:00 11/14/18 06:00 11/14/18 07:00 Temperature 97.4 F L Pulse Rate 74 78 76 Respiratory Rate 16 Blood Pressure 143/67 H Pulse Oximetry 94 L GENERAL: A&O x 3 SKIN: Warm and dry. dressing intact to left posterior chest wall HEAD: Normocephalic. EYES: No scleral icterus. No injection or drainage. NECK: Supple, trachea midline. No JVD or lymphadenopathy. CARDIOVASCULAR: Regular rate and rhythm without murmurs, gallops, or rubs. RESPIRATORY: Breath sounds equal bilaterally. No accessory muscle use. GASTROINTESTINAL: Abdomen soft, non-tender, nondistended. MUSCULOSKELETAL: No cyanosis, or edema. BACK: Nontender without obvious deformity. No CVA tenderness. Result Diagrams: 11/11/18 04:06 11/11/18 04:06 - Plan (1) S/P thoracotomy Plan: pulm toileting nebs ezpap await path OOB ambulate on room air will dc home (4) Tobacco abuse Plan: smoking cessation
== END 2018-11-14 10:38 | disposition home health service (06) | DRG 165 ==
LOC: HSDI 11-10 05:19 → HCPC 11-10 15:11
PROVIDERS: ADMIT Thoracic Surgery (Cardiothoracic Vascular Surgery); ATTEND Thoracic Surgery (Cardiothoracic Vascular Surgery)
CPT/HCPCS: 36430; 71010; 71020; 71045; 71046; 80048; 85025; 86077; 86850; 86870; 86900; 86901; 86920; 86922; 88305; 88307; 88309; 94150; 94640; 94664; 94665; C9290; J0131; J0690; J1100; J1644; J1885; J2250; J2270; J3010; J7120; P9016